=== PATIENT | female | born 1990 | race Caucasian/White ===

== ENCOUNTER 2021-01-16 14:38 | Outpatient (CLI) | payer BC, SELFPAY ==
--- NOTE | ~2021-01-16 | US_ITS ---
EXAMINATION: US OB /maternal detail DATE: 01/16/2021 15:28 INDICATION: anatomic survey. TECHNIQUE: Real-time ultrasound of the pelvis was performed. COMPARISON: None. FINDINGS: There is a single living fetus in vertex presentation. The placenta is anterior, 8.0 cm from the cer vix. heart rate is 137 beats per minute (bpm). The amniotic fluid index is 19.5 cm, which is no rmal. The following biometric data were obtained: Biparietal diameter (BPD): 6.3 cm; head circumference (HC): 23.3 cm; abdominal circumference (AC): 20 .9 cm; femur length (FL): 4.3 cm. These measurements are discordant with FL/BPD < 5th percentile. Estimated weight is 758 g +/- 114 g, which correlates with 89th percentile when 05/09/21 is used as estimated date of delivery. As single measurements, these parameters are each equal to the following estimated gestational ages: BPD: 25 weeks 5 days. HC: 25 weeks 2 days. AC: 25 weeks 3 days. FL: 24 weeks 2 days. estimated gestational age based solely on measurements from this exam is 25 weeks 1 days +/- 1 weeks 5 days. The cerebral ventricles, cerebellum, cisterna magna, nuchal fold, and visualized portions of the spin e are normal. The heart is normal. The diaphragm, stomach, kidneys, and bladder are normal. There are two umbilical arteries to yield a 3-vessel cord. The cord insertion is normal. IMPRESSION: 1. Single living fetus in vertex presentation. 2. Estimated weight is 758 g +/- 114 g, which correlates with 89th percentile when 05/09/21 is used as estimated date of delivery. 3. Discordant biometrics with low FL/BPD. 4. Normal anatomic survey. Reviewed, dictated and finalized at location A. IMPRESSION: 1. Single living fetus in vertex presentation. 2. Estimated weight is 758 g +/- 114 g, which correlates with 89th perce ntile when 05/09/21 is used as estimated date of delivery. 3. Discordant biometrics with low FL/BPD. 4. Normal anatomic survey.
== END 2021-01-16 14:39 | disposition home or self-care (01) ==
PROVIDERS: Visit Provider Obstetrics & Gynecology
DX: Z36.89 Encounter for other specified antenatal screening (principal); O28.3 Abnormal ultrasonic finding on antenatal screening of mother; Z3A.00 Weeks of gestation of pregnancy not specified
CPT/HCPCS: 76805

== ENCOUNTER 2021-02-01 11:06 | Outpatient (CLI) | payer BC, SELFPAY ==
[2021-02-01 12:39] LABS: Basophils Percent Auto 0.1 % (0.2-1.2); Eosinophils Absolute Auto 0.1 K/mm3 (0-0.3); Eosinophils Percent Auto 0.9 % (0-4.4); Hematocrit 30.8 % (37.0-47.0); Hemoglobin 10.2 g/dL (12.0-15.0); Immature Granulocyte Absolute 0.06 K/mm3 (0.00-0.031); Immature Granulocyte Percent A 0.6 % (0-0.5); Lymphocytes Absolute Auto 1.23 K/mm3 (0.9-3.2); Lymphocytes Percent Auto 12.7 % (18.3-44.2); Mean Corpuscular HGB Conc 33.1 g/dl (32-36); Mean Corpuscular Hemoglobin 33.1 pg (26-34); Mean Platelet Volume 8.7 fl (7.4-10.4); Monocytes Absolute Auto 0.6 K/mm3 (0.1-0.6); Monocytes Percent Auto 5.9 % (2.6-8.5); Neutrophils Absolute Auto 7.7 K/mm3 (1.3-6.7); Neutrophils Percent Auto 79.8 % (45.5-73.1); Platelet Count Result 187 k/mm3 (150-375); Red Blood Count 3.08 M/mm3 (4.2-5.4); Red Cell Distribution Width 14.3 % (11.5-14.5); White Blood Count 9.7 K/mm3 (4.5-10.0)
[2021-02-01 12:44] LABS: Glucose 1 Hour PP 50gm Dose 117 mg/dL
== END 2021-02-01 11:07 | disposition home or self-care (01) ==
LOC: ANHLAB 11:08
PROVIDERS: Visit Provider Obstetrics & Gynecology
DX: Z34.90 Encounter for supervision of normal pregnancy, unspecified, unspecified trimester (principal); Z3A.00 Weeks of gestation of pregnancy not specified
CPT/HCPCS: 36415; 82947; 85025

== ENCOUNTER 2021-02-15 15:46 | Outpatient (RCR) | payer BC, SELFPAY ==
[2021-02-15 17:03] LABS: HIV 1/2 Ab P24 Ag Result Negative (Negative)
[2021-02-15 17:38] LABS: Hepatitis C Virus Antibody Negative (Negative)
[2021-02-18] MEDS: RHO(D) IMMUNE GLOBULIN 300 MCG/2 ML SYRINGE IM (12:11)
== END 2021-05-16 23:59 | disposition home or self-care (01) ==
LOC: ANHLAB 15:46
PROVIDERS: Visit Provider Obstetrics & Gynecology
DX: Z11.4 Encounter for screening for human immunodeficiency virus [HIV] (principal); Z29.13 Encounter for prophylactic Rho(D) immune globulin; O36.0190 Maternal care for anti-D [Rh] antibodies, unspecified trimester, not applicable or unspecified; Z3A.00 Weeks of gestation of pregnancy not specified
CPT/HCPCS: 36415; 85461; 86703; 86787; 86803; 90384; 96372; G0432; J2790

== ENCOUNTER 2021-03-31 09:42 | Inpatient (IN) | payer BC, SELFPAY ==
[2021-03-31] VITALS (27 sets, daily range): BP systolic 94–126; BP diastolic 53–82; PULSE 53–81; RESP 16–18; TEMP 36.3–36.9; BMI 23.4
[2021-03-31] MEDS: LACTATED RINGERS 1,000 ML 125 ML IV CONT (11:11)
[2021-03-31] MEDS: AMPICILLIN 2 GM/NS 100 ML 2 GM/100 ML BAG IVPB (11:12)
[2021-03-31] MEDS: BETAMETHASONE SOD PHOS/ACETATE 30 MG/5 ML VIAL 12 MG IM (11:12)
[2021-03-31 11:15] LABS: Basophils Percent Auto 0.2 % (0.2-1.2); Eosinophils Absolute Auto 0.1 K/mm3 (0-0.3); Eosinophils Percent Auto 0.7 % (0-4.4); Hematocrit 35.3 % (37.0-47.0); Hemoglobin 11.3 g/dL (12.0-15.0); Immature Granulocyte Percent A 0.8 % (0-0.5); Lymphocytes Absolute Auto 1.23 K/mm3 (0.9-3.2); Lymphocytes Percent Auto 10.3 % (18.3-44.2); Mean Corpuscular Hemoglobin 31.4 pg (26-34); Mean Corpuscular Volume 98.1 fl (80-100); Monocytes Absolute Auto 0.7 K/mm3 (0.1-0.6); Monocytes Percent Auto 6.1 % (2.6-8.5); Neutrophils Absolute Auto 9.8 K/mm3 (1.3-6.7); Neutrophils Percent Auto 81.9 % (45.5-73.1); Platelet Count Result 264 k/mm3 (150-375); Red Cell Distribution Width 13.8 % (11.5-14.5)
--- NOTE | 2021-03-31 11:29 | LDADM ---
This patient, Pauline Aguero, was admitted to Labor/Delivery/Recovery 108 on 03/31/21 at 10:30. Plans for labor, pain management and were discussed with patient. Patient/family oriented to hospital policies and general routines including ID bracelet, bed and alarms, visiting hours, pain management, procedures, bathroom and other care routines, personal items, smoking policy, room service/diet and guest tray routines, security routines, and visiting hours. Patient/Family are encouraged to report perceived risks to care and to ask questions if they do not understand what they are told or what they should do. See OBIX for further documentation.
[2021-03-31 11:35] LABS: Amphetamine Screen Urine Negative (Negative); Barbiturate Screen Urine Negative (Negative); Benzodiazepines Screen Urine Negative (Negative); Cannabinoid Screen Urine Positive (Negative); Cocaine Screen Urine Negative (Negative); Methadone Screen Urine Negative (Negative); Opiate Screen Urine Negative (Negative); Phencyclidine Screen Urine Negative (Negative)
--- NOTE | 2021-03-31 14:48 | PM.IMHP ---
H&P: HPI History of Present Illness Date/Time: 03/31/21 14:48 Patient is a LMP 07/29/20 currently 35w gestation with an estimated due date of 05/05/2021. Patient is dated by LMP consistent with an ultrasound on 01/16/2021 at 25 weeks gestation. Patient presents to L&D with complaints of contractions as well as possible leakage of fluid. Patient reports waking at approximately 6:30 a.m. with cramping and increased pelvic pressure. Patient reports worsening discomfort over next few hours. Patient states that at approximately 8:00 a.m., she went to use the restroom and noted spotting on toilet tissue. Patient reported persistent cramping afterwards. At approximately 8:30 a.m., patient felt leakage of fluid like she was peeing on herself. Patient reports clear fluid. States that while walking, she noticed fluid visibly leaking and running down her legs. Since then, patient reports feeling more leakage of discharge as opposed to thin fluid. Patient does report getting into the bathtub prior to noticing leakage of fluid. Denies any recent intercourse. Patient reports good movement. course complicated by late entry to care as well as limited care as she has only had 3 visits in office. Chief Complaint: labor Review of Systems Review of Systems: All systems reviewed & are unremarkable except as noted in HPI and below Constitutional: Constitutional: Reports as per HPI, Reports no additional constitutional complaints, Denies chills, Denies fever(s), Denies headache(s) and Denies night sweats Eyes: Eyes: Reports as per HPI and Reports no additional eye complaints ENT: Reports system reviewed and no additional complaints, except as documented, Reports as per HPI, Reports Normal hearing present and Denies headache(s) Cardiovascular: Cardiovascular: Reports as per HPI, Reports no additional cardiovascular complaints, Denies chest pain and Denies dyspnea Respiratory: Respiratory: Reports as per HPI, Reports no additional respiratory complaints, Denies cough and Denies dyspnea Gastrointestinal: Gastrointestinal: Reports as per HPI, Reports no additional gastrointestinal complaints, Denies abdominal pain, Denies change in bowel habits, Denies change in stool character, Denies nausea and Denies vomiting Genitourinary: Genitourinary: Reports no additional female genitourinary complaints, Reports as per HPI, Denies abnormal vaginal bleeding, Denies genital lesions, Denies hot flashes, Denies dyspareunia, Denies pelvic pain, Denies sexual dysfunction, Denies urinary incontinence, Denies vaginal discharge, Denies vaginal dryness and Denies vaginal odor Musculoskeletal: Musculoskeletal: Reports no additional musculoskeletal complaints and Reports as per HPI Integumentary/Breasts: Skin/Breast: Reports system reviewed and no additional complaints, except as docu, Reports as per HPI, Denies breast pain and Denies nipple discharge Neurologic: Reports system reviewed and no additional complaints, except as documented, Reports as per HPI, Reports Normal hearing present and Denies headache(s) Psychiatric: Psychiatric: Reports no additional psychiatric complaints, Reports as per HPI, Denies anxiety and Denies depression Endocrine: Endocrine: Reports no additional endocrine complaints and Reports as per HPI Hematologic/Lymphatic: Hematologic/Lymphatic: Reports no additional hematologic/lymphatic complaints and Reports as per HPI Allergic/Immunologic: Allergic/Immunologic: Reports no additional allergic/immunologic complaints and Reports as per HPI [facility] Past Medical History Medical History Acid reflux Anxiety Headache History of chlamydia IBS (irritable bowel syndrome) Surgical History Surgical History No significant past surgical history Family History Family History (Reviewed 03/31/21 @ 15
[2021-03-31 14:58] LABS: Hepatitis B Surface Anti Res Indeterminate
[2021-03-31] MEDS: AMPICILLIN 1 GM/NS 50 ML 1 GM/50 ML BAG IVPB ×3 (15:20→23:24)
[2021-04-01] VITALS (29 sets, daily range): BP systolic 88–140; BP diastolic 47–100; PULSE 55–101; RESP 16–20; TEMP 36.1–37.1; O2SAT 100
[2021-04-01] MEDS: AMPICILLIN 1 GM/NS 50 ML 1 GM/50 ML BAG IVPB (03:32)
[2021-04-01] MEDS: ONDANSETRON INJ 4 MG/2 ML VIAL IV PUSH (03:44)
--- NOTE | 2021-04-01 06:27 | P.PCNOB_ITS ---
OB - Delivery Note Procedure Delivery date: 04/01/21 Procedure: Patient is a now 30-year-old who presented to Labor and delivery on 03/31/2021 at 35 weeks gestation with complaints of contractions and possible rupture of membranes. ROM Plus was positive, although patient did not experience any further leakage of fluid. Patient was rosana frequently upon arrival, every 1-5 minutes. Initial cervical exam was 2 cm dilated. Patient made cervical change to 3 cm dilated and was admitted in labor. She was started on antibiotics for GBS prophylaxis for unknown GBS status as well as received a dose of Celestone for prematurity. Patient continued to experience contractions and was found to be 6 cm dilated approximately 11:15 p.m. Patient continued to make progressive cervical place change roof bolter next several hours. At 5:20 a.m., patient experienced spontaneous rupture of forebag. Clear fluid was noted. Patient was fully dilated at this time. Patient was encouraged to push and found to be pushing well. She was prepped and draped for delivery. At 5:43 a.m., patient delivered head atraumatically and without difficulty in JOSÉ MIGUEL presentation. Occiput restituted to maternal right side. With subsequent push, the infant's neck, shoulders, and rest of body del ivered without difficulty. 's nose and mouth were suctioned with bulb suction. Infant was crying spontaneously. was placed on maternal abdomen where care was assumed by awaiting nursing staff. Delayed cord clamping was performed for approximately 60 seconds. also voided spontaneously. Cord was clamped and cut. A segment of cord was collected for cord gases. Cord blood was also collected. The placenta was delivered spontaneously and intact. Uterine fundus became firm with bimanual massage. On inspection, two first- degree perineal lacerations were noted as well as bilateral periurethral lacerations. 1% lidocaine was administered for local analgesia. These lacerations were repaired with 3-0 Vicryl in the usual fashion. Excellent hemostasis was noted. Estimated blood loss for entire delivery was 300 cc. The was a live-born female , Apgars 9/9, weighing 6 lb 1 oz. Mother and baby doing well at end of delivery. events: Labor < 37 Weeks Intrapartal events: None Delivery monitor: external FHT and external uterine Route of delivery: Laceration Description: Periurethral (bilateral) and Perineal - 1st Degree (x2) Delivery repair: vicryl (3-0) Specimen: Yes (placenta and cord, cord blood, and cord gases) Quantitative Blood Loss (ml): 300 Anesthesia type: None Disposition: floor Complications: no immediate complications Baby Date of : 04/01/21 Time of : 05:43 Weeks of gestation at delivery: 35 (35.1) Infant gender: Female Weight (pounds): 6 Weight (ounces): 1 presentation: vertex position: Right Occiput Anterior Placenta delivery description: Spontaneous cord vessel description: 3 Vessels and Delayed Cord Clamping score one minute: 9 score five minutes: 9
[2021-04-01] MEDS: ACETAMINOPHEN 325 MG TABLET 650 MG PO (07:27)
[2021-04-01] MEDS: IBUPROFEN 600 MG TABLET PO ×2 (07:29→13:45)
[2021-04-01] MEDS: WITCH HAZEL 40 PADS 1 PAD TOPICAL (08:00)
[2021-04-01] MEDS: BENZOCAINE 20% AER SPR (*SP) 56 GM CAN 1 SPRAY TOPICAL (08:00)
[2021-04-01 08:12] LABS: Hepatitis B Surface Antigen Negative (Negative)
[2021-04-01 09:52] LABS: Rapid Plasma Reagin Non-Reactive (NonReactive)
--- NOTE | 2021-04-01 11:05 | PC.NURSE ---
Primary RN requested observation of feeding. Mother reports latched eagerly for first feeding, infant fed for 7 minutes with pausing and sleeping. Mother independently latched infant to right breast in cradle, is latched correctly nursing with long draws and occasional swallowing noted. Reviewed feeding cues, frequencies, duration of feedings, feeding elimination flow sheet, and signs of adequate intake. Reviewed positioning/alignment, holding breast and asymmetrical latch on. Reviewed signs of a correct latch, effective nursing and suck swallow ratio. Infant was able to maintain latch without discomfort to mother. Nipple care reviewed. Instructed mother to call out for RN assistance if she is unable to latch infant for feeding or she has discomfort with nursing. Instructed feeding should be initiated three hours from start of last feeding or if feeding cues are noted before. Mother voiced understanding of information shared.
[2021-04-01] MEDS: HYDROcodone/acetaminophen (*CRX) 5-325 MG TABLET 1 TAB PO (16:51)
[2021-04-01] MEDS: DOCUSATE SODIUM 100 MG CAPSULE PO (16:51)
[2021-04-02 00:08] VITALS: BP 105/53; PULSE 72; RESP 16; TEMP 36.3; O2SAT 99
[2021-04-02] MEDS: IBUPROFEN 600 MG TABLET PO ×3 (05:25→19:07)
[2021-04-02] MEDS: HYDROcodone/acetaminophen (*CRX) 5-325 MG TABLET 1 TAB PO ×3 (05:25→21:23)
[2021-04-02 05:57] LABS: Hematocrit 24.7 % (37.0-47.0); Hemoglobin 8.2 g/dL (12.0-15.0)
[2021-04-02] MEDS: DOCUSATE SODIUM 100 MG CAPSULE PO ×2 (06:29→17:55)
[2021-04-02] MEDS: MULTIVIT/MIN/PREN/FOL AC/IRON TABLET 1 TAB PO (06:29)
[2021-04-02] MEDS: POLYSACCHARIDE IRON COMPLEX 150 MG CAPSULE PO ×2 (06:29→17:55)
[2021-04-02] MEDS: BENZOCAINE 20% AER SPR (*SP) 56 GM CAN 1 SPRAY TOPICAL (06:31)
[2021-04-02] MEDS: WITCH HAZEL 40 PADS 1 PAD TOPICAL (06:31)
[2021-04-02 06:45] VITALS: BP 107/49; PULSE 64; RESP 16; TEMP 36.2; O2SAT 98
--- NOTE | 2021-04-02 07:24 | P.PNOB_ITS ---
OB - PN: Subj Subjective Date/time seen: 04/02/21 07:24 Patient comments: no complaints, pain well controlled and other (Lochia similar to menses) [place] baby status: doing well OB - PN: Obj Data Labs CBC & Chem 7: 04/02/21 05:30 Labs: Laboratory Results - last 24 hr 03/31/21 03/31/21 04/02/21 11:01 11:01 05:30 Hgb 8.2 L D Hct 24.7 L RPR Non-reactive Hep Bs Antigen Negative OB - PN A/P Plan day: 1 (s/p vaginal delivery, doing well) Plan: routine care Comments: Likely discharge tomorrow, keeping baby 48 hours after delivery due to unknown GBS status and prematurity Time Spent With Patient Time: Total time spent is greater than 50% in coordination of care (as documented) at patient's floor/unit and/or counseling patient: Time with patient: less than 15 minutes Exam Const: General: no acute distress GI: Inspection: other (Fundus firm and nontender at umbilicus) GI Palp: Yes Soft to palpation and No Tenderness to palpation present (GI) Extrem: General: no edema
--- NOTE | 2021-04-02 14:00 | PC.NURSE ---
Breast pump provided due to infant with weight and jaundice. Instructions given on breast pump care and usage, pumping schedule, nipple care, and collection and storage of breast milk. Encouraged [id number], breast massage and manual expression to stimulate supply. Assessed patient for correct flange size, placement and draw. Patient verbalizes and demonstrates understanding of instructions.
[2021-04-02] MEDS: RHO(D) IMMUNE GLOBULIN 300 MCG/2 ML SYRINGE IM (15:58)
[2021-04-02] MEDS: TETANUS,DIPHTHERIA,AC PERTUSSIS ADULT (0.5 ML) BOOSTRIX IM (15:59)
[2021-04-02 20:00] VITALS: BP 107/69; PULSE 64; PULSE 80; RESP 16; TEMP 37.1; O2SAT 98; O2SAT 99
--- NOTE | 2021-04-03 06:36 | P.DS_ITS ---
DS: Admitting Diagnosis Admitting Diagnosis Admitting Diagnosis: labor DS: Discharge Diagnosis Discharge Diagnosis (1) labor, delivered, current hospitalization: Code(s): O60.10X0 - labor with delivery, unspecified trimester, not applicable or unspecified Status: Acute OB - DS: Summary OB Procedures : PTL Mgmt OB Procedures Intrapartum: Spontaneous Vag Delivery OB Procedures: : None Peripartum Data Delivery Method: Natural Vaginal Laceration Description: Perineal - 2nd Degree complications: none Status at Discharge Functional status at discharge: independent ambulation Overall status at discharge: patient is progressing back to baseline Time Spent with Patient Time attestation: Total time spent providing and/or coordinating discharge services: Time spent: Less than 30 minutes DS: Data Data Completed and Pending Pending studies at discharge: Pending at discharge 04/01/21 07:27 Surgical [PTH] Routine Labs on day of discharge: Labs from last 24 hours 04/02/21 05:30 Blood Type O Negative Antibody Screen TNP Screen Negative Baby's Blood Type O pos Baby's ANDREW Positive Doses of RhIg Required 1 Discharge Plan Discharge Attending physician on discharge: Nika Saenz Discharging Clinician: Nika Saenz Patient Disposition: Home, Self-Care Activity: may shower and pelvic rest Diet: as tolerated Patient Instructions: Antibiotic Form Stand Alone Forms: General Discharge Information Follow-up/Referrals: Nika Saenz MD [Physician] - 4 Weeks Discharge Medications: New ibuprofen 600 mg Tablet 600 mg PO Q6H PRN (Reason: Cramping) Qty: 60 RF: 0 Continued prenat.vits,odilon,jim-fqsn-imaen Tablet 1 tablet PO DAILY RF: 0 Date of admission: 03/31/21 10:30 Primary Care Provider: PHYSICIAN,POWER AND RECOVERY SUPERVISOR Admitting Provider: Nika Saenz Attending physician on admission: Nika Saenz Condition: Stable
--- NOTE | 2021-04-03 06:39 | P.PNOB_ITS ---
OB - PN: Subj Subjective Date/time seen: 04/03/21 06:39 Patient comments: no complaints, pain well controlled and other (Lochia similar to menses) [place] baby status: doing well OB - PN: Obj Data Labs CBC & Chem 7: 04/02/21 05:30 Labs: Laboratory Results - last 24 hr 04/02/21 05:30 Blood Type O Negative Antibody Screen TNP Screen Negative Baby's Blood Type O pos Baby's ANDREW Positive Doses of RhIg Required 1 OB - PN A/P Plan day: 2 (s/p vaginal delivery, doing well) Plan: routine care, discharge home and other (Follow up in office in 4 weeks) Time Spent With Patient Time: Total time spent is greater than 50% in coordination of care (as documented) at patient's floor/unit and/or counseling patient: Exam Const: General: no acute distress GI: Inspection: other (Fundus firm and nontender below umbilicus) GI Palp: Yes Soft to palpation and No Tenderness to palpation present (GI) Extrem: General: no edema
[2021-04-03] MEDS: HYDROcodone/acetaminophen (*CRX) 5-325 MG TABLET 1 TAB PO ×2 (07:08→16:13)
[2021-04-03] MEDS: IBUPROFEN 600 MG TABLET PO ×2 (07:09→16:12)
[2021-04-03] MEDS: POLYSACCHARIDE IRON COMPLEX 150 MG CAPSULE PO ×2 (07:10→16:12)
[2021-04-03] MEDS: DOCUSATE SODIUM 100 MG CAPSULE PO ×2 (07:10→16:12)
[2021-04-03] MEDS: MULTIVIT/MIN/PREN/FOL AC/IRON TABLET 1 TAB PO (07:10)
[2021-04-03 07:15] VITALS: PULSE 70; RESP 16; O2SAT 100
[2021-04-03 08:10] VITALS: BP 110/61; PULSE 70; RESP 16; TEMP 36.9; O2SAT 100
--- NOTE | 2021-04-03 09:30 | PC.NURSE ---
Consult with pt., mother is putting to breast each feeding, she will supplement due to jaundice/prematurity and will then pump. is eagerly latching most feedings, nursing without discomfort to mother. Mother pumped 25mls last session without difficulties or discomfort, which she is using as part of supplement. Mother is independent with feedings.
--- NOTE | 2021-04-03 15:13 | PC.NURSE ---
Patient viewed the discharge video Mother & Baby Care, The First Two Weeks . Patient was given the opportunity and encouraged to ask questions. Patient verbalized understanding of information shared and has been given the mother/baby guide for home reference.
--- NOTE | 2021-04-04 08:45 | PC.NURSE ---
Consult with pt., mother is putting to breast each feeding, then supplements 25-30 mls of EBM. Reviewed ICP order of Human Milk Fortifier (HMF) to be added to breastmilk. Reviewed instructions for HMF, mother voices understanding. Mother will continue using HMF until seen by her ICP. Mother will make appointment before discharge today. Mother has a double electric pump for home use, which she is able to pump without difficulties or discomfort. Reviewed to limit time to breast to 15-20 minutes on one breast rotating each feeding. Advised not to discontinue supplementation until seen by ICP. Mother is able to independently latch with appropriate positioning/alignment. She denies any nipple discomfort, is feeding as required and waking to feed if needed. Infant several effective feedings followed with supplementation of EBM in the past 24 hours, and is currently meeting outcomes for weight, output, jaundice and feeding frequencies. Mother states she feels confident to continue current feeding plan at home. Reviewed transition to breast milk, signs of adequate intake, and engorgement/relief. Instructed to call ICP if intake/output less than required. Reviewed regular medications mother is taking. Information provided per Samara. Reviewed community resources on the [facility] website and in the Mom/Baby guide. Information on outpatient services provided. Mother has no further questions at this time.
[2021-04-05 09:25] VITALS: BP 125/52; PULSE 71; RESP 20; TEMP 36.9; O2SAT 100
== END 2021-04-03 17:00 | disposition home or self-care (01) | DRG 560 ==
LOC: ANHOBPP 09:46 → ANHLDR 10:34 → ANHOB2 04-01 10:36
PROVIDERS: Admitting Provider Student in an Organized Health Care Education/Training Program; Visit Provider Obstetrics & Gynecology
DX: O42.913 Preterm premature rupture of membranes, unspecified as to length of time between rupture and onset of labor, third trimester (principal); Z37.0 Single live birth; Z3A.35 35 weeks gestation of pregnancy; O60.14X0 Preterm labor third trimester with preterm delivery third trimester, not applicable or unspecified; O71.82 Other specified trauma to perineum and vulva; O70.0 First degree perineal laceration during delivery; O99.62 Diseases of the digestive system complicating childbirth; K21.9 Gastro-esophageal reflux disease without esophagitis; K58.9 Irritable bowel syndrome, unspecified; O99.344 Other mental disorders complicating childbirth; F41.9 Anxiety disorder, unspecified
CPT/HCPCS: 36415; 80307; 84112; 85014; 85018; 85025; 85461; 86592; 86706; 86762; 86850; 86880; 86900; 86901; 86902; 87340; 88307; 90384; 90715; A9270; J0290; J0702; J2405; J2790; J2795; J7120

== ENCOUNTER 2025-01-07 17:12 | Emergency (ER) | payer OTHER, SELFPAY ==
--- OUTSIDE RECORDS SUMMARY | 2025-01-07 17:15 | XMS_ITS | Clinical Summary ---
Author Organization [facility] Address [facility] [place] [address] Care Team Providers Care Assistant Women'S Basketball Coach Name Role Phone Unavailable Primary Care Provider Unavailabl e Social History Tobacco Use Types Packs/Day Years Used Date Smoking Tobacco: Never Assessed Comments Unknown Sex and Gender Information Value Date Recorded Sex Assigned at Not on file Legal Sex Female 5:09 PM CDT Gender Identity Not on file Sexual Orientation Not on file Plan of Treatment Health Maintenance Due Date Last Done Comments Cervical Cancer Screening Pa p Smear (Age 30 to 64) Every 3 Years 1991 Annual Physical 1994 Hepatitis C 2009 DTaP, Tdap and Td Vaccines ( 1 - Tdap) 2010 Hepatitis B Vaccines (1 of 3 - 19+ 3-dose series) 2010 Cervical Cancer Screening Pa p with HPV Testing (Age 30 to 64) Every 5 Years 2021 Cervical Cancer Screening with HPV 2021 COVID-19 Vaccine (2023-2 5 season) 2024 HPV Vaccines Aged Out No longer eligi ble based on patient's age to complete this topic Meningococcal B Vaccine Aged Out No l onger eligible based on patient's age to complete this topic Meningococcal Vaccine Aged Out No srikanth nakia eligible based on patient's age to complete this topic Pneumococcal Vaccine: Pediat rics (0 to 5 Years) and At-Risk Patients (6 to 49 Years) Aged Out No longer eligible b ased on patient's age to complete this topic RSV Immunizations Under 20 Months Aged Out No longer eligible based on patient's age to complete this topic
--- OUTSIDE RECORDS SUMMARY | 2025-01-07 17:15 | XMS_ITS | Continuity of Care Document ---
Author Organization [facility] Address [address] [place] [id number] Care Team Providers Care Sql Database Administrator Name Role Phone Unavailable Unavailable Unavailable Allergies, Adverse Reactions, Alerts Substance Reaction Status Criticality No Known Allergies Active No Inform ation Procedures Procedure Date OFFICE/OUTPATIENT VISIT, EST PREV VISIT, NEW, AGE 18-39 URINALYSIS NONAUTO W/O SCOPE CYTOPATH, C/V, THIN LAYER HPV High Risk Types CHYLMD TRACH, DNA, AMP PROBE N.GONORRHOEAE, DNA, AMP PROB URINE CULTURE REFERRAL LABCOLONY COUNT R OUTINE Advance Directives Directive Yes / No Effective Date File Name No Information Encounters Encounter Description Practice Location Reason(s) For Visit Diagnoses Date Provider Providers Copied on Encounter [facility], [address] [place] [address], [id number], [facility] No Information 8 No Information OFFICE/OUTPAT IENT VISIT, [facility], [address] [place] [address], [id number], [address] review PAP lab results (chief complaint) Body mass index (BMI) 21.0-21.9, adultOth cond assoc w female genital organs and menstrual cycle 8 No Information PREV VISIT, NEW, AGE 18-39 [facility], [address] [place] [address], [id number], [address] PAP (chief complaint) Body mass index (BMI) 20.0-20.9, adultOth cond assoc w female genital organs and menstrual cycleEncntr for proctologist exam (general) (routine) w/o abn findings 0- 8 No Information Family History Family Member Type Diagnosis Age At Onset Mother Problem (finding) Alive and well Payers Payer name Insurance type Covered democrat ID Arlyn robertson(s) Lissa A 09 Social History Type Description Quantity Date Captured Comments Sex Female Smoking Status No Information Chief Complaint And Reason For Visit No Information Reason For Referral Reason For Referral No Information Plan Of Treatment Date Type Action Status Goal Lifestyle education regardin g diet completed Goal Lifestyle education regardin g diet completed History Of Present Illness Encounter Date Complaint History Of Prese nt Illness review PAP lab results The sympt oms began 2 weeks ago and generally lasts 1 Day. The symptoms are reported as being . The symptoms occur . She states the symptoms are acute. 26 y/o wf, here to review recent PAP lab results. All normal results discussed with patient. No other complaints, feeling good and healthy. PAP The symptoms beg an 1 week ago and generally lasts 1 Day. The symptoms are reported as being . The symptoms occur . The location is [facility]. She states the symptoms are acute. 26 y/o wf, here for her first PAP, sexually active, G0, P0, A0. No control. Regular menses cycles, LMP 09/20/17. Treated for STD in recent past and wants to check again. Functional Status Date Functional Assessmen t No Information Instructions Date Instruction Additional Infor chino PAP normal lab resul ts, asymptomatic f/u prn Related to Oth cond assoc w female genital organs and menstrual cycle Giving encouragement to exercise Related to Body mass index (BMI) 21.0-21.9, adult Lifestyle education regarding di et Related to Body mass index (BMI) 21.0-21.9, adult return if worsens Related to Oth cond assoc w female genital organs and menstrual cycle Giving encouragement to exercise Related to Body mass index (BMI) 20.0-20.9, adult Lifestyle education regarding di et Related to Body mass index (BMI) 20.0-20.9, adult Assessments Type Assessment Date No Information Patient Care Teams Name Effective Dates (start - stop) Status Members No Information
--- OUTSIDE RECORDS SUMMARY | 2025-01-07 17:15 | XMS_ITS | Clinical Summary ---
Author Organization [facility] Address [address] [place] [phone] Phone Care Team Providers Care Yard Jacker Name Role Phone Unavailable Primary Care Provider Unavailabl e Social History Tobacco Use Types Packs/Day Years Used Date Smoking Tobacco: Never Assessed Comments Unknown Sex and Gender Information Value Date Recorded Sex Assigned at Not on file Legal Sex Female 11:19 AM CDT Gender Identity Not on file Sexual Orientation Not on file Plan of Treatment Health Maintenance Due Date Last Done Comments DTAP/TDAP/TD VACCINES (1 - Tdap) 2010 HEPATITIS B VACCINES (1 of 3 - 19+ 3-dose series) 2010 HPV/Cotest (21-29) 2012 CERVICAL CANCER SCREENING 2021 HPV/Cotest (30-65) 2021 PAP SMEAR 2021 INFLUENZA VACCINE (#1) 2024 HPV VACCINES Aged Out No longer eligi ble based on patient's age to complete this topic Insurance BCBS BLUE ACCESS/TRUE BLUE PPO
--- OUTSIDE RECORDS SUMMARY | 2025-01-07 17:26 | XMS_ITS | Continuity of Care Document ---
Author Organization [facility] Address [address] [place] [id number] Care Team Providers Care Orderly Name Role Phone Unavailable Unavailable Unavailable Allergies, [...] Diagnoses Date Provider Providers Copied on Encounter [facility], [address] [place] [address], [id number], [facility] No Information 8 No Information OFFICE/OUTPAT IENT VISIT, [facility], [address] [place] [address], [id number], [address] review PAP lab results (chief complaint) Body mass index (BMI) 21.0-21.9, adultOth cond assoc w female genital organs and menstrual cycle 8 No Information PREV VISIT, NEW, AGE 18-39 [facility], [address] [place] [address], [phone], [address] PAP (chief complaint) Body mass index (BMI) 20.0-20.9, adultOth cond assoc w female genital organs and menstrual cycleEncntr for web sizer exam (general) (routine) w/o abn findings 0- 8 No Information Family History Family Member Type Diagnosis Age At Onset Mother Problem (finding) Alive and well Payers Payer name Insurance type Covered green party ID Arlyn robertson(s) Lissa A 09 Social [...] The symptoms occur . The location is [employer]. She states the symptoms are acute. 26 [...]
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
[2025-01-07 17:31] VITALS: BP 119/87; PULSE 94; RESP 18; TEMP 36.6; O2SAT 99
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
[2025-01-07] MEDS: DOXYCYCLINE HYCLATE 100 MG TABLET PO (23:21)
[2025-01-07] MEDS: ONDANSETRON HCL ODT 4 MG TABLET PO (23:21)
[2025-01-07] MEDS: metroNIDAZOLE 500 MG TABLET PO (23:21)
--- NOTE | 2025-01-07 23:26 | PC.NURSE ---
patient refused shower at this time.
[2025-01-07 23:28] LABS: BEDSIDEPREGUCG Negative (Negative)
[2025-01-07 23:53] LABS: Add Urine Microscopic? YES; Appearance Urine Cloudy (Clear); Bacteria Urine 4+ /hpf; Bilirubin Urine Negative (Negative); Blood Urine 3+ (Negative); Color Urine Dark Yellow (Yellow); Glucose Urine UA Negative (Negative); Ketones Urine 2+ mg/dL (Negative); Leukocyte Esterase Ur 2+ LEU/UL (Negative); Need Manual Microscopic Reviewed; Nitrate Urine Negative (Negative); Protein Urine 1+ mg/dL (Negative); Specific Grav Ur 1.029 (1.001-1.035); Squamous Epithelial Cell Urine Many /hpf (Few); WBC Urine 21-50 /hpf (0-3)
[2025-01-08 00:09] LABS: Syphilis IgG/IgM Antibody Negative (Negative)
[2025-01-08 00:22] LABS: HIV 1/2 Ab P24 Ag Result Negative (Negative)
[2025-01-08 00:36] LABS: Trichomonas Vag PCR NOT DETECTED (NOT DETECTE)
[2025-01-08 00:59] LABS: Chlamydia trachomatis NOT DETECTED (NOT DETECTE); Neisseria gonorrhoeae PCR NOT DETECTED (NOT DETECTE)
[2025-01-08] MEDS: ULIPRISTAL ACETATE 30 MG TABLET PO (01:45)
== END 2025-01-08 01:51 | disposition home or self-care (01) ==
PROVIDERS: Emergency Provider Registered Nurse
DX: T74.21XA Adult sexual abuse, confirmed, initial encounter (principal); N39.0 Urinary tract infection, site not specified
CPT/HCPCS: 36415; 81001; 81025; 86593; 86703; 87491; 87591; 87661; 99285; A9270; G0432